=== PATIENT | male | born 1995 | race Caucasian/White ===

== ENCOUNTER 2020-07-03 18:16 | Emergency (ER) | payer MEDICAID, SELFPAY ==
[2020-07-03 18:32] VITALS: BP 132/82; PULSE 83; RESP 16; TEMP 36.5; O2SAT 98; BMI 33.5
[2020-07-03 20:02] LABS: MANUAL DIFF FLAG NO
[2020-07-03 20:03] LABS: Basophils Absolute Auto 0.1 X10*3/uL (0.0-0.2); Basophils Percent Auto 0.5 % (0-2); Eosinophils Absolute Auto 0.2 X10*3/uL (0.0-0.4); Hematocrit 43.5 % (42-52); Hemoglobin 14.9 g/dl (14.0-18.0); Imm Gran Abs Auto 0.04 X10*3/uL (0.00-0.03); Imm Gran Pct Auto 0.4 % (0.0-0.4); Lymphocytes Absolute Auto 3.3 X10*3/uL (1.2-4.9); Mean Corpuscular HGB Conc 34.3 g/dl (31.0-36.0); Mean Corpuscular Volume 84.6 fL (80-98); Mean Platelet Volume 10.1 fL (9.4-12.4); Monocytes Absolute Auto 0.7 X10*3/uL (0.1-1.2); Monocytes Percent Auto 6.7 % (2-11); Neutrophils Absolute Auto 6.4 X10*3/uL (2.0-8.3); Neutrophils Percent Auto 59.4 % (45-73); Platelet Count 187 X10*3/uL (160-400); Red Blood Count 5.14 X10*6/uL (4.60-5.80); Red Cell Distribution Width 11.8 % (11.0-16.0); White Blood Count 10.7 X10*3/uL (4.8-10.8)
[2020-07-03 20:04] LABS: Glucose Urine UA NEG (NEG); Leukocyte Esterase Urine NEG (NEG); Nitrite Urine NEG (NEG); PH 6.5 (5.0-8.0); Urine Blood NEG (NEG); Urine Ketones NEG (NEG); Urine Protein NEG (NEG-TRACE)
[2020-07-03 20:05] LABS: Appearance Urine CLEAR; Color Urine YELLOW
[2020-07-03 20:10] LABS: Prothrombin Time 11.9 SEC (10.8-13.0)
[2020-07-03 20:13] LABS: Partial Thromboplastin Time 31.1 SEC (24.1-38.0)
[2020-07-03] MEDS: Ketorolac Tromethamine 30 MG/ML VIAL IVPUSH (20:17)
[2020-07-03] MEDS: 0.9 % Sodium Chloride 1,000 ML 999 ML IV ×2 (20:18→21:52)
--- NOTE | 2020-07-03 20:20 | ED.ABDPAIN ---
HPI - Abdominal Pain General Chief Complaint: Abdominal Pain Stated Complaint: sharp abd pain Time Seen by Provider: 07/03/20 19:15 Source: patient Mode of arrival: ambulatory Limitations: no limitations History of Present Illness HPI narrative: Patient presents to ED for left mid abdominal for 1 week. Patient states pain occurred after sneezing and ever since every time he moves his abdomen or sneeze he has pain. Patient denies any swelling/pain of the testicle, groin pain/swelling, fever, chills, dysuria, hematuria, flank pain, or blood in stool. Patient denies feeling any bulging or mass in the abdominal area. Patient denies any swelling/pain in groin or testicular area. Patient states pain is in mid abdomen MD elicited complaint: abdominal pain Related Data Previous Rx's Medication Instructions Recorded cyclobenzaprine 10 mg PO TID PRN #15 tab 07/03/20 naproxen 500 mg PO BID PRN #20 tab 07/03/20 Allergies Allergy/AdvReac Type Severity Reaction Status Date / Time No Known Allergies Allergy Unverified 02/23/20 17:01 [No Known Allergies*] Review of Systems Review of Systems Yes all other systems are reviewed and are negative Constitutional: Reports as per HPI and Reports no additional constitutional complaints Eyes: Reports as per HPI and Reports no additional eye complaints Reports system reviewed and no additional complaints, except as documented and Reports as per HPI Cardiovascular: Reports as per HPI and Reports no additional cardiovascular complaints Respiratory: Reports as per HPI and Reports no additional respiratory complaints Gastrointestinal: Reports as per HPI, Reports no additional gastrointestinal complaints and Reports abdominal pain (Left mid abdomen) Genitourinary: Reports no additional male genitourinary complaints and Reports as per HPI Musculoskeletal: Reports no additional musculoskeletal complaints and Reports as per HPI Reports system reviewed and no additional complaints, except as documented and Reports as per HPI Psychiatric: Reports no additional psychiatric complaints and Reports as per HPI Physical Exam Vital Signs: Vital Signs: Last Vital Signs Temp 98.4 F 07/03/20 21:50 Pulse 67 07/03/20 21:50 Resp 15 07/03/20 21:50 BP 126/81 07/03/20 21:50 Pulse Ox 99 07/03/20 21:50 Body Mass Index 33.5 Const: General: cooperative, healthy appearing, comfortable, no acute distress, well developed, alert and awake; No Physically active Orientation/consciousness: patient oriented x3 HENMT: Head: Yes normal to inspection and Yes No palpable skull fracture present Eyes: General: appearance normal, both eyes and all related structures Neck: Neck: Yes normal visual inspection, Yes full ROM, Yes no lymphadenopathy, Yes no meningeal signs, Yes trachea midline, Yes supple and No tender Chest: Chest palpation & inspection: normal inspection of the chest and normal palpation of entire chest wall Resp: Effort & Inspection: normal respiratory effort and able to speak in complete sentences Auscultation: clear to auscultation bilaterally Cardio: Jugular venous distension: no JVD Heart sounds: S1 normal heart sound present and S2 normal heart sound present GI: Other: Negative for any mass on palpation of abdominal area. Negative for any pinpoint tenderness. Inspection: Yes normal to inspection and No abdominal wall ecchymosis Palpation (GI): Soft to palpation, not firm, nontender, no guarding and not rigid : General: No CVA tenderness and Yes no CVA tenderness Back/Spine/Pelvis: Back: no CVA tenderness, No CVA tenderness and No back tenderness Skin: General skin exam: no rashes or lesions noted and elasticity normal Neuro: General: patient oriented x3, no meningeal signs and CN's II-XI intact bilaterally Cranial nerves: Yes CN's II-XII intact bilaterally Extrem: General: Yes normal to inspection and Yes full ROM Psych: Appearance: grossly normal, well kempt and not disheveled Course Course Course Narrative: Patient abdomen is benign but due to him stating 1 week of left lower quadrant mid abdominal pain will be sent for CT abdomen to make sure there is no medical/surgical emergent etiology. Reevaluation(s) Reevaluation #1: Labs came back normal except patient's creatinine. Patient's creatinine elevated. When I went to discuss this with patient patient admits that he he drinks lots of creatinine to gain weight. Patient informed creatinine can cause increase in his kidney function and he should stop or reduce intake of creatinine. Patient will be sent for dry abdominal CT scan. Presently patient not any distress. Patient will be given IV fluids and have repeat chemistry ordered. Time: 22:16 Reevaluation #2: Abdominal CT scan came back negative for any hernia or any abdominal etiology. Patient receiving fluid and will await results of repeat chemistry. Case signed out to ANASTASIA Holbrook MDM - Abdominal Pain MDM Narrative Medical decision making narrative: Abdominal wall strain Lab Data Result diagrams: 07/03/20 19:49 07/03/20 19:49 Labs: Lab Results 07/03/20 07/03/20 07/03/20 Range/Units 19:49 19:49 19:49 WBC 10.7 (4.8-10.8) X10*3/uL RBC 5.14 (4.60-5.80) X10*6/uL Hgb 14.9 (14.0-18.0) g/dl Hct 43.5 (42-52) % MCV 84.6 (80-98) fL MCH 29.0 (27.0-33.0) pg MCHC 34.3 (31.0-36.0) g/dl RDW 11.8 (11.0-16.0) % Plt Count 187 (160-400) X10*3/uL MPV 10.1 (9.4-12.4) fL Immature Gran % (Auto) 0.4 (0.0-0.4) % Neut % (Auto) 59.4 (45-73) % Lymph % (Auto) 31.0 (20-40) % [place] % (Auto) 6.7 (2-11) % Eos % (Auto) 2.0 (0-4) % Baso % (Auto) 0.5 (0-2) % Lymph # (Auto) 3.3 (1.2-4.9) X10*3/uL [place] # (Auto) 0.7 (0.1-1.2) X10*3/uL Eos # (Auto) 0.2 (0.0-0.4) X10*3/uL Baso # (Auto) 0.1 (0.0-0.2) X10*3/uL Abs Immat Gran (auto) 0.04 H (0.00-0.03) X10*3/uL Absolute Neuts (auto) 6.4 (2.0-8.3) X10*3/uL Absolute Nucleated RBC 0.000 (0.0-0.012) X10*3/uL Nucleated RBC % (auto) 0.0 (0.0-0.2) /100WBC PT 11.9 (10.8-13.0) SEC INR 1.0 (0.9-1.1) APTT 31.1 (24.1-38.0) SEC Sodium 140 (135-145) mmol/L Potassium 4.3 (3.3-5.1) mmol/l Chloride 104 (96-108) mmol/L Carbon Dioxide 28 (22-29) mmol/L Anion Gap 12 (12-20) BUN 19 H (9-16) mg/dL Creatinine 1.48 H (0.5-1.4) mg/dL Estim Creat Clear Calc 98.2 Estimated GFR 59 Random Glucose 86 (60-115) mg/dL Calcium 9.3 (8.4-10.2) mg/dL Total Bilirubin 0.4 (0.0-1.0) mg/dL Direct Bilirubin < 0.2 (0.0-0.5) mg/dL AST 41 H (5-37) U/L ALT 62 H (0-40) U/L Alkaline Phosphatase 90 (39-117) U/L Total Protein 7.5 (6.5-8.0) g/dL Albumin 4.7 (3.5-5.0) g/dL Lipase 36 (8-78) U/L Urine Color Urine Appearance Urine pH (5.0-8.0) Ur Specific [place] (1.005-1.025) Urine Protein (NEG-TRACE) MG/DL Urine Glucose (UA) (NEG) MG/DL Urine Ketones (NEG) MG/DL Urine Blood (NEG) Urine Nitrite (NEG) Ur Leukocyte Esterase (NEG) 07/03/20 Range/Units 19:49 WBC (4.8-10.8) X10*3/uL RBC (4.60-5.80) X10*6/uL Hgb (14.0-18.0) g/dl Hct (42-52) % MCV (80-98) fL MCH (27.0-33.0) pg MCHC (31.0-36.0) g/dl RDW (11.0-16.0) % Plt Count (160-400) X10*3/uL MPV (9.4-12.4) fL Immature Gran % (Auto) (0.0-0.4) % Neut % (Auto) (45-73) % Lymph % (Auto) (20-40) % [place] % (Auto) (2-11) % Eos % (Auto) (0-4) % Baso % (Auto) (0-2) % Lymph # (Auto) (1.2-4.9) X10*3/uL [place] # (Auto) (0.1-1.2) X10*3/uL Eos # (Auto) (0.0-0.4) X10*3/uL Baso # (Auto) (0.0-0.2) X10*3/uL Abs Immat Gran (auto) (0.00-0.03) X10*3/uL Absolute Neuts (auto) (2.0-8.3) X10*3/uL Absolute Nucleated RBC (0.0-0.012) X10*3/uL Nucleated RBC % (auto) (0.0-0.2) /100WBC PT (10.8-13.0) SEC INR (0.9-1.1) APTT (24.1-38.0) SEC Sodium (135-145) mmol/L Potassium (3.3-5.1) mmol/l Chloride (96-108) mmol/L Carbon Dioxide (22-29) mmol/L Anion Gap (12-20) BUN (9-16) mg/dL Creatinine (0.5-1.4) mg/dL Estim Creat Clear Calc Estimated GFR Random Glucose (60-115) mg/dL Calcium (8.4-10.2) mg/dL Total Bilirubin (0.0-1.0) mg/dL Direct Bilirubin (0.0-0.5) mg/dL AST (5-37) U/L ALT (0-40) U/L Alkaline Phosphatase (39-117) U/L Total Protein (6.5-8.0) g/dL Albumin (3.5-5.0) g/dL Lipase (8-78) U/L Urine Color YELLOW Urine Appearance CLEAR Urine pH 6.5 (5.0-8.0) Ur Specific [place] 1.010 (1.005-1.025) Urine Protein NEG (NEG-TRACE) MG/DL Urine Glucose (UA) NEG (NEG) MG/DL Urine Ketones NEG (NEG) MG/DL Urine Blood NEG (NEG) Urine Nitrite NEG (NEG) Ur Leukocyte Esterase NEG (NEG) Discharge Plan Discharge Clinical Impression: Abdominal wall strain Patient Disposition: Home, Self-Care Instructions: Muscle Strain (ED), Abdominal Pain (ED) Additional Instructions: Return to the ED for worsening abdominal pain, swelling of groin or testicular area, vomiting, fever, chills, flank pain, dysuria, hematuria, or any other concerning symptoms. Be aware of drowsiness caused by cyclobenzaprine. Do not take it at work or while driving. Please follow-up with the PCP Prescriptions: New naproxen 500 mg tablet 500 mg PO BID PRN (Reason: pain) Qty: 20 RF: 0 cyclobenzaprine 10 mg tablet 10 mg PO TID PRN (Reason: strain) Qty: 15 RF: 0 Print Language: [place]al[place] [facility] Past Medical History Medical History (Updated 07/03/20 @ 22:18 by ZHOU Boo) No known health problems Social History Social History Alcohol intake: never Smoking Status: Never smoker Use of substances other than those prescribed or required for medical reasons: No Advance Directives: No Advance Directives Information Provided: Yes
[2020-07-03 20:34] LABS: Alanine Aminotransferase 62 U/L (0-40); Albumin Level 4.7 g/dL (3.5-5.0); Alkaline Phosphatase 90 U/L (39-117); Anion Gap 12 (12-20); Aspartate Amino Transferase 41 U/L (5-37); Bilirubin Direct < 0.2 mg/dL (0.0-0.5); Bilirubin Total 0.4 mg/dL (0.0-1.0); Blood Urea Nitrogen 19 mg/dL (9-16); Calcium 9.3 mg/dL (8.4-10.2); Carbon Dioxide 28 mmol/L (22-29); Chloride 104 mmol/L (96-108); Creatinine Clr Calc Pharmacy 98.2; Estimated Glomerular Filt Rate 59; Glucose Random 86 mg/dL (60-115); Lipase 36 U/L (8-78); Potassium 4.3 mmol/l (3.3-5.1); Sodium 140 mmol/L (135-145); Total Protein 7.5 g/dL (6.5-8.0)
--- NOTE | 2020-07-03 20:59 | CT_ITS ---
EXAMINATION: CT ABDOMEN AND PELVIS WITHOUT CONTRAST CLINICAL INFORMATION: Left-sided abdominal pain. Question diverticulitis or hernia. COMPARISON: None TECHNIQUE: Multidetector volumetric imaging was performed from the superior aspect of the liver through the pubic symphysis. Sagittal and coronal reformatted images were obtained on the technologist's workstation. This CT examination was performed using dose optimization techniques as appropriate, variously including the following: *Automated exposure control *Adjustment of mA and/or kV according to patient size (this includes techniques or standardized protocols for targeted exams where dose is matched to indication/reason for exam; i.e. extremities or head) *Use of iterative reconstruction technique DLP: 732 mGy-cm FINDINGS: LUNG BASES: The visualized lung bases are unremarkable. LIVER, GALLBLADDER, AND BILIARY TREE: The liver is normal in size, shape, and attenuation. No focal hepatic lesion or biliary ductal dilatation is present. The gallbladder is unremarkable with no evidence of radiopaque gallstones, gallbladder wall thickening, or obvious pericholecystic inflammatory changes. PANCREAS: Unremarkable. SPLEEN: Unremarkable. ADRENAL GLANDS: Unremarkable. KIDNEYS AND URETERS: The kidneys are normal in size, shape, and attenuation. No hydronephrosis, hydroureter, or calculi seen. No perinephric stranding. BLADDER: Unremarkable. GASTROINTESTINAL TRACT: The stomach is unremarkable. Normal caliber small bowel. There is no obstruction. No colonic wall thickening or acute inflammatory change. Normal appendix. No free air or free fluid. ABDOMINAL WALL: No significant hernia is appreciated. LYMPH NODES: Normal. VASCULAR: Unremarkable. PELVIC VISCERA: The prostate and seminal vesicles are unremarkable. OSSEOUS STRUCTURES: Unremarkable. CT/CT abdomen pelvis wo con IMPRESSION: No acute findings of the abdomen or pelvis. No inflammatory changes. No abdominal wall hernia.
[2020-07-03 21:50] VITALS: BP 126/81; PULSE 67; RESP 15; TEMP 36.9; O2SAT 99
[2020-07-03 23:00] LABS: Carbon Dioxide 26 mmol/L (22-29); Chloride 108 mmol/L (96-108); Sodium 141 mmol/L (135-145)
[2020-07-03 23:01] LABS: Alanine Aminotransferase 54 U/L (0-40); Albumin Level 4.2 g/dL (3.5-5.0); Alkaline Phosphatase 78 U/L (39-117); Anion Gap 11 (12-20); Aspartate Amino Transferase 35 U/L (5-37); Bilirubin Total 0.4 mg/dL (0.0-1.0); Blood Urea Nitrogen 19 mg/dL (9-16); Calcium 8.5 mg/dL (8.4-10.2); Creatinine Clr Calc Pharmacy 107.7; Estimated Glomerular Filt Rate > 60; Glucose Random 91 mg/dL (60-115); Total Protein 6.6 g/dL (6.5-8.0)
== END 2020-07-03 23:29 | disposition home or self-care (01) ==
PROVIDERS: Physician Assistant; Emergency Provider Emergency Medicine Emergency Medical Services
DX: S39.011A Strain of muscle, fascia and tendon of abdomen, initial encounter (principal); X50.9XXA Other and unspecified overexertion or strenuous movements or postures, initial encounter; Y93.89 Activity, other specified; Y92.019 Unspecified place in single-family (private) house as the place of occurrence of the external cause; Y99.9 Unspecified external cause status
CPT/HCPCS: 36415; 74176; 80053; 80076; 81003; 82248; 83690; 85025; 85610; 85730; 96361; 96374; 99284; J1885

== ENCOUNTER 2020-12-30 21:55 | Emergency (ER) | payer OTHER, SELFPAY ==
[2020-12-30 22:29] VITALS: BP 130/80; PULSE 78; RESP 16; TEMP 37.2; O2SAT 99; BMI 32.8
--- NOTE | 2020-12-30 23:06 | ED_ITS ---
HPI - General Adult General Chief complaint: General Medical Stated complaint: strept Time Seen by Provider: 12/30/20 22:41 Source: patient Mode of arrival: ambulatory Limitations: no limitations History of Present Illness HPI narrative: 25-year-old male otherwise healthy came in for evaluation of sore throat. This is a 25-year-old male was diagnosed with strep pharyngitis at urgent care 2 days ago, patient was started on Augmentin and been taking the medication for the last 2 days but not feeling improvement with persistent of the fever of 103. Related Data Previous Rx's Medication Instructions Recorded cyclobenzaprine 10 mg PO TID PRN #15 tab 07/03/20 naproxen 500 mg PO BID PRN #20 tab 07/03/20 amoxicillin 875 mg-potassium 1 tab PO BID #20 tab 12/28/20 clavulanate 125 mg tablet clindamycin HCl 300 mg PO BID 7 Days #14 cap 12/31/20 prednisone 20 mg PO BID #10 tab 12/31/20 Allergies Allergy/AdvReac Type Severity Reaction Status Date / Time No Known Allergies Allergy Unverified 12/28/20 11:48 [No Known Allergies*] Review of Systems Review of Systems: All other systems are reviewed and are negative Constitutional: Reports as per HPI and Reports no additional constitutional complaints Eyes: Reports as per HPI and Reports no additional eye complaints Reports system reviewed and no additional complaints, except as documented Cardiovascular: Reports as per HPI and Reports no additional cardiovascular complaints Respiratory: Reports as per HPI and Reports no additional respiratory complaints Gastrointestinal: Reports as per HPI and Reports no additional gastrointestinal complaints Genitourinary: Reports no additional female genitourinary complaints Musculoskeletal: Reports no additional musculoskeletal complaints Skin/Breast: Reports system reviewed and no additional complaints, except as docu Psychiatric: Reports no additional psychiatric complaints Endocrine: Reports no additional endocrine complaints Hematologic/Lymphatic: Reports no additional hematologic/lymphatic complaints Allergic/Immunologic: Reports no additional allergic/immunologic complaints Reports system reviewed and no additional complaints, except as documented and Reports Abnormal speech present [facility] Past Medical History Medical History No known health problems Social History Social History Alcohol intake: never Advance Directives: No Advance Directives Information Provided: Yes Physical Exam Vital Signs: Vital Signs: Last Vital Signs Temp 99 F 12/30/20 22:29 Pulse 78 12/30/20 22:29 Resp 16 12/30/20 22:29 BP 130/80 12/30/20 22:29 Pulse Ox 99 12/30/20 22:29 Body Mass Index 32.8 Vital signs have been reviewed as appeared to be correct. Blood pressure normal. Heart rate normal. Respiration rate normal. Temperature normal. Oxygen saturation normal. Appearance: Alert. Oriented X3. No acute distress. Head: Normal external exam. Normocephalic. Atraumatic. No Mayer signs noted. No raccoon eyes noted Eyes: PERRLA. EOMI. Conjunctiva and sclera normal. Eyelids normal. ENT: Pharyngeal erythema, with enlarged tonsils, white discharge, uvula is midline, no pre tonsillar abscess is appreciated. Neck: Normal inspection. Neck supple. FROM. No adenopathy. Thyroid Normal. No meningeal signs. No neck mass noted. CVS: Normal heart rate and rhythm. Heart sound normal. No murmurs noted. Pulses normal throughout. Respiratory: No respiratory distress. Painless inspiration. Breath sounds normal. No wheezes/rales/rhonchi noted. Chest nontender. No accessory muscle usage noted or decreased air movement noted. Abdomen: Soft and nontender. Bowel sounds normal in all 4 quadrants. No distention noted. No organomegaly noted. No visible injury noted. Back: No CVA tenderness. Full range of motion noted. Skin: Skin warm and dry. Normal skin color. Normal skin turgor. No rashes/lesions/lacerations noted. Extremities: No lower extremity edema. Extremities exhibit normal range of motion. Extremities nontender. Neuro: Oriented X 3. No motor deficit. No sensory deficit. Reflexes normal. Course Course Course Narrative: Assessment and plan. Patient with pharyngitis, patient is not responding well to Augmentin, will start the patient on clindamycin and short course of prednisone to help the swelling of the tonsils. Medical Decision Making Lab Data Lab results reviewed: Yes I reviewed the patient's lab results. Labs: Lab Results 12/30/20 12/30/20 Range/Units 23:24 23:24 Monoscreen Negative (Negative) S. pyogenes GrpA JEFF Negative (Negative) Discharge Plan Discharge Clinical Impression: Pharyngitis Patient Disposition: Home, Self-Care Prescriptions: New clindamycin HCl 300 mg capsule 300 mg PO BID 7 Days Qty: 14 RF: 0 prednisone 20 mg tablet 20 mg PO BID Qty: 10 RF: 0 No Action naproxen 500 mg tablet 500 mg PO BID PRN (Reason: pain) Qty: 20 RF: 0 cyclobenzaprine 10 mg tablet 10 mg PO TID PRN (Reason: strain) Qty: 15 RF: 0 amoxicillin-pot clavulanate [Augmentin] 875-125 mg tablet 1 tab PO BID Qty: 20 RF: 0 Referrals: Physician,None [Primary Care Provider] - 2 days Stand Alone Forms: Work/School Release
[2020-12-30 23:36] LABS: Strep A Nucleic Acid Negative (Negative)
[2020-12-30] MEDS: predniSONE 20 MG TABLET 40 MG PO (23:37)
[2020-12-30] MEDS: Clindamycin HCL 300 MG CAPSULE 600 MG PO (23:37)
[2020-12-30 23:51] LABS: Monotest Negative (Negative)
== END 2020-12-31 00:37 | disposition home or self-care (01) ==
PROVIDERS: Emergency Provider Emergency Medicine
DX: J02.9 Acute pharyngitis, unspecified (principal); R50.9 Fever, unspecified
CPT/HCPCS: 36415; 86308; 87651; 99283

== ENCOUNTER 2021-01-03 11:17 | Outpatient (REF) | payer OTHER, SELFPAY | END 2021-01-03 11:18 | disposition home or self-care (01) | LOC: HO.LNP 11:17 | PROVIDERS: Visit Provider Internal Medicine | DX: Z20.822 Contact with and (suspected) exposure to COVID-19 (principal) | CPT/HCPCS: U0003; U0005 ==

== ENCOUNTER 2021-01-06 10:23 | Emergency (ER) | payer OTHER, SELFPAY ==
--- NOTE | ~2021-01-06 | XR_ITS ---
EXAMINATION: XR CHEST CLINICAL INFORMATION: Cough COMPARISON: None TECHNIQUE: Frontal view of the chest was obtained. FINDINGS: Lungs are well-inflated and clear. Trachea is midline in position. No interstitial disease, consolidation or mass. No pulmonary edema, pleural effusion or pneumothorax. Cardiac silhouette and pulmonary vessels are normal in size. The mediastinum and jenise have normal contour. The visualized bones, and upper abdomen, are unremarkable. XR/XR chest 1V IMPRESSION: No acute cardiopulmonary abnormality. No evidence of pneumonia.
[2021-01-06 11:10] VITALS: BP 119/79; PULSE 82; RESP 18; TEMP 36.3; O2SAT 98; BMI 31.4
--- NOTE | 2021-01-06 13:37 | ED_ITS ---
HPI - General Adult General Chief complaint: Upper Respiratory Symptoms Stated complaint: Difficulty breathing Time Seen by Provider: 01/06/21 12:32 Source: patient Mode of arrival: ambulatory Limitations: no limitations History of Present Illness HPI narrative: Patient presents to ED for coughing. Patient states presently being treated for strep throat. Patient states he was amoxicillin and was not working so they switched him to clindamycin. Patient states tomorrow is his last dose of the amoxicillin and clindamycin. Patient also on steroids. Patient came to the ED to make sure he does not have pneumonia due to coughing. Patient tested negative for COVID yesterday. Patient was positive for strep throat last week. Patient denies any drooling, change in voice, or chest pain. Related Data Previous Rx's Medication Instructions Recorded cyclobenzaprine 10 mg tablet 10 mg PO TID PRN #15 tab 07/03/20 naproxen 500 mg tablet 500 mg PO BID PRN #20 tab 07/03/20 amoxicillin 875 mg-potassium 1 tab PO BID #20 tab 12/28/20 clavulanate 125 mg tablet (Augmentin) clindamycin HCl 300 mg capsule 300 mg PO BID 7 Days #14 cap 12/31/20 prednisone 20 mg tablet 20 mg PO BID #10 tab 12/31/20 benzonatate 100 mg capsule 100 mg PO TID PRN #15 cap 01/06/21 (Priya Enriquez) Allergies Allergy/AdvReac Type Severity Reaction Status Date / Time No Known Allergies Allergy Unverified 12/28/20 11:48 [No Known Allergies*] Review of Systems Review of Systems: Yes all other systems are reviewed and are negative Constitutional: Constitutional: Reports as per HPI and Reports no additional constitutional complaints Eyes: Eyes: Reports as per HPI and Reports no additional eye complaints ENT: Reports system reviewed and no additional complaints, except as documented, Reports as per HPI and Reports sore throat Cardiovascular: Cardiovascular: Reports as per HPI, Reports no additional cardiovascular complaints, Denies dyspnea and Denies dyspnea on exertion Respiratory: Respiratory: Reports as per HPI, Reports no additional respiratory complaints, Reports cough, Denies excessive phlegm production, Denies pain on inspiration, Denies pain with cough, Denies dyspnea and Denies dyspnea on exertion Gastrointestinal: Gastrointestinal: Reports as per HPI and Reports no additional gastrointestinal complaints Genitourinary: Genitourinary: Reports no additional male genitourinary complaints and Reports as per HPI Musculoskeletal: Musculoskeletal: Reports no additional musculoskeletal complaints and Reports as per HPI Integumentary/Breasts: Skin/Breast: Reports system reviewed and no additional complaints, except as docu and Reports as per HPI Neurologic: Reports system reviewed and no additional complaints, except as documented and Reports as per HPI Psychiatric: Psychiatric: Reports no additional psychiatric complaints and Reports as per HPI [facility] Past Medical History Medical History No known health problems Social History Social History Alcohol intake: never Advance Directives: No Advance Directives Information Provided: No Physical Exam Vital Signs: Vital Signs: Last Vital Signs Temp 97.3 F 01/06/21 11:10 Pulse 82 01/06/21 11:10 Resp 18 01/06/21 11:10 BP 119/79 01/06/21 11:10 Pulse Ox 98 01/06/21 11:10 Body Mass Index 31.4 Const: General: cooperative, healthy appearing, comfortable, no acute distress, well developed, alert, awake and Physically active Orie ntation/consciousness: patient oriented x3 HENMT: Other: Negative for signs of peritonsillar abscess Head: Yes normal to inspection, Yes No palpable skull fracture present, Yes normocephalic and Yes atraumatic Throat: Yes posterior oropharynx normal, Yes uvula midline, Yes abnormal tonsil (Both tonsils have white exudates. ) and No peritonsillar mass Eyes: General: appearance normal, both eyes and all related structures Neck: Neck: Yes normal visual inspection, Yes full ROM, Yes no lymphadenopathy, Yes no meningeal signs, Yes trachea midline, Yes supple, No anterior neck swelling and No tender Chest: Chest palpation & inspection: normal inspection of the chest and normal palpation of entire chest wall Resp: Effort & Inspection: normal respiratory effort and able to speak in complete sentences Auscultation: clear to auscultation bilaterally Cardio: Jugular venous distension: no JVD Heart sounds: S1 normal heart sound present and S2 normal heart sound present GI: Inspection: Yes normal to inspection and No abdominal wall ecchymosis Palpation (GI): Soft to palpation, not firm, nontender, no guarding and not rigid : General: No CVA tenderness and Yes no CVA tenderness Back/Spine/Pelvis: Back: no CVA tenderness, No CVA tenderness and No back tenderness Skin: General skin exam: no rashes or lesions noted and elasticity normal Neuro: General: patient oriented x3, gait normal, no meningeal signs and CN's II-XI intact bilaterally Cranial nerves: Yes CN's II-XII intact bilaterally Extrem: General: Yes normal to inspection and Yes full ROM Course Course Course Narrative: Negative for signs of peritonsillar abscess. Patient had negative COVID swab yesterday. Will do chest x-ray Reevaluation(s) Reevaluation #1: Chest x-ray came back negative for pneumonia. Patient informed to continue taking antibiotics and follow-up with ENT. No need for any CT scan. Not suspecting any retropharyngeal abscess, Simeon's, or peritonsillar abscess. Patient speaking in full sentences not using accessory muscles. Time: 13:43 Medical Decision Making MDM Narrative Medical decision making narrative: Tonsillitis Discharge Plan Discharge Clinical Impression: Acute tonsillitis, Upper respiratory infection Patient Disposition: Home, Self-Care Instructions: Pharyngitis (ED), Upper Respiratory Infection (ED), Tonsillitis (ED) Additional Instructions: Your chest x-ray came back negative for pneumonia. Continue taking your antibiotics ( amoxicillin and clindamycin). Please follow-up with ENT specialist. Return to the ED for any drooling, change in voice, neck swelling, chest pain, shortness of breath, intractable fever, chills, inability tolerate solid food/liquid, or any other concerning symptoms. Please follow-up with PCP. Prescriptions: New benzonatate [Tessalon Perles] 100 mg capsule 100 mg PO TID PRN (Reason: cough) Qty: 15 RF: 0 No Action naproxen 500 mg tablet 500 mg PO BID PRN (Reason: pain) Qty: 20 RF: 0 cyclobenzaprine 10 mg tablet 10 mg PO TID PRN (Reason: strain) Qty: 15 RF: 0 clindamycin HCl 300 mg capsule 300 mg PO BID 7 Days Qty: 14 RF: 0 prednisone 20 mg tablet 20 mg PO BID Qty: 10 RF: 0 amoxicillin-pot clavulanate [Augmentin] 875-125 mg tablet 1 tab PO BID Qty: 20 RF: 0 Referrals: Franki Ashby [Physician] - 2 days (Tonsillitis) Stand Alone Forms: Work/School Release Interventions: ED Discharge Assessment Last Done: 01/06/21 13:54 Discharge Date/Time: 01/06/21 13:59 Print Language: Romansh
== END 2021-01-06 13:59 | disposition home or self-care (01) ==
PROVIDERS: Emergency Provider Student in an Organized Health Care Education/Training Program; PCP Internal Medicine
DX: J06.9 Acute upper respiratory infection, unspecified (principal); J03.90 Acute tonsillitis, unspecified; R06.02 Shortness of breath; Z79.899 Other long term (current) drug therapy
CPT/HCPCS: 71045; 99283

== ENCOUNTER 2021-04-24 19:04 | Emergency (ER) | payer OTHER, SELFPAY ==
--- NOTE | ~2021-04-24 | XR_ITS ---
EXAMINATION: XR HAND, RIGHT CLINICAL INFORMATION: Injury and pain to the index finger COMPARISON: None TECHNIQUE: PA, lateral, and oblique views of the right hand. FINDINGS: There is dislocation of the PIP joint of the index finger. The middle phalanges dislocated posterior without overriding. No fracture fragment evident. XR/XR hand RT min 3V IMPRESSION: Dislocation of the PIP joint of the index finger.
--- NOTE | ~2021-04-24 | XR_ITS ---
EXAMINATION: XR FINGER, RIGHT CLINICAL INFORMATION: Dislocation PIP joint of index finger follow-up reduction COMPARISON: None TECHNIQUE: Three views of the right index. FINDINGS: Successful reduction of the previously seen dislocation of the PIP joint of the index finger. There is a chip fracture at the volar side of the joint. There are site appears to be the volar side of the middle phalange at the volar plate. XR/XR finger RT min 2V IMPRESSION: Successful reduction of PIP joint dislocation of the index finger. Volar plate fracture.
[2021-04-24 20:05] VITALS: BP 118/78; PULSE 76; RESP 16; TEMP 37.1; O2SAT 100; BMI 32.1
--- NOTE | 2021-04-24 20:29 | ED.EXTPRO ---
HPI - Extremity Problem General Chief complaint: Extremity Injury, Upper Stated complaint: rt hand ? broken finger Time Seen by Provider: 04/24/21 20:28 Source: patient Mode of arrival: ambulatory Limitations: no limitations History of Present Illness HPI Narrative: 25-year-old male came in for evaluation of her right index finger injury. Patient hurt his right index finger while playing basketball, the ball bounced in his right index, patient cannot bend his finger and finger is extended unable to flex the finger. Patient declined any other injuries. Related Data Previous Rx's Medication Instructions Recorded cyclobenzaprine 10 mg tablet 10 mg PO TID PRN #15 tab 07/03/20 naproxen 500 mg tablet 500 mg PO BID PRN #20 tab 07/03/20 amoxicillin 875 mg-potassium 1 tab PO BID #20 tab 12/28/20 clavulanate 125 mg tablet (Augmentin) clindamycin HCl 300 mg capsule 300 mg PO BID 7 Days #14 cap 12/31/20 prednisone 20 mg tablet 20 mg PO BID #10 tab 12/31/20 benzonatate 100 mg capsule 100 mg PO TID PRN #15 cap 01/06/21 (Tessalon Perles) Allergies Allergy/AdvReac Type Severity Reaction Status Date / Time No Known Allergies Allergy Verified 01/23/21 10:52 [No Known Allergies*] Review of Systems Review of Systems: All other systems are reviewed and are negative Constitutional: Reports as per HPI and Reports no additional constitutional complaints Eyes: Reports as per HPI and Reports no additional eye complaints Reports system reviewed and no additional complaints, except as documented Cardiovascular: Reports as per HPI and Reports no additional cardiovascular complaints Respiratory: Reports as per HPI and Reports no additional respiratory complaints Gastrointestinal: Reports as per HPI and Reports no additional gastrointestinal complaints Genitourinary: Reports no additional female genitourinary complaints Musculoskeletal: Reports no additional musculoskeletal complaints Skin/Breast: Reports system reviewed and no additional complaints, except as docu Psychiatric: Reports no additional psychiatric complaints Endocrine: Reports no additional endocrine complaints Hematologic/Lymphatic: Reports no additional hematologic/lymphatic complaints Allergic/Immunologic: Reports no additional allergic/immunologic complaints Reports system reviewed and no additional complaints, except as documented and Reports Abnormal speech present PMFSH Past Medical History Medical History No known health problems Surgical History No history of previous surgery Family History Family History Mother High blood pressure Obesity Father No problems noted. Social History Social History Housing: House Alcohol intake: never Patient Tobacco Use Status: Never used Tobacco e-Cigarette/Vaping Use: Never Used Second Hand Smoke Exposure: Yes Advance Directives: No Advance Directives Information Provided: Yes service: No Current occupational status: unemployed Physical Exam Vital Signs: Vital Signs: Last Vital Signs Temp 98.7 F 04/24/21 20:05 Pulse 76 04/24/21 20:05 Resp 16 04/24/21 20:05 BP 118/78 04/24/21 20:05 Pulse Ox 100 04/24/21 20:05 Body Mass Index 32.1 Vital signs have been reviewed as appeared to be correct. Blood pressure normal. Heart rate normal. Respiration rate normal. Temperature normal. Oxygen saturation normal. Appearance: Alert. Oriented X3. No acute distress. Head: Normal external exam. Normocephalic. Atraumatic. No Mayer signs noted. No raccoon eyes noted Eyes: PERRLA. EOMI. Conjunctiva and sclera normal. Eyelids normal. ENT: TM's Normal. Pharynx normal. Uvula midline. Moist mucous membranes. No trismus noted. No drooling noted. No muffled voice noted. Neck: Normal inspection. Neck supple. FROM. No adenopathy. Thyroid Normal. No meningeal signs. No neck mass noted. CVS: Normal heart rate and rhythm. Heart sound normal. No murmurs noted. Pulses normal throughout. Respiratory: No respiratory distress. Painless inspiration. Breath sounds normal. No wheezes/rales/rhonchi noted. Chest nontender. No accessory muscle usage noted or decreased air movement noted. Abdomen: Soft and nontender. Bowel sounds normal in all 4 quadrants. No distention noted. No organomegaly noted. No visible injury noted. Back: No CVA tenderness. Full range of motion noted. Skin: Skin warm and dry. Normal skin color. Normal skin turgor. No rashes/lesions/lacerations noted. Extremities: Right hand exam: Right index is held in hyper extension position with deformity, unable to flex right index, otherwise neurovascularly intact. Neuro: Oriented X 3. Cranial nerve exam: II-XII are grossly intact No motor deficit. No sensory deficit. Reflexes normal. Course Course Course Narrative: Assessment and plan. 25-year-old male status post right index finger reduction in the emergency department. Will immobilize the finger in splint and follow-up with ortho. MDM - Extremity (Nontraumatic) Imaging Data Right finger x-ray: Attestation: I personally reviewed and interpreted this imaging study as follows: Radiologist's impression: Dislocation of right PIP joint of her right index. Right index finger postreduction x-ray.: Radiologist's impression: Successful reduction of PIP joint dislocation of the index finger. Volar plate fracture. Discharge Plan Discharge Clinical Impression: Dislocation of finger Qualifiers: Encounter type: initial encounter Qualified Code(s): S63.259A - Unspecified dislocation of unspecified finger, initial encounter Patient Disposition: Home, Self-Care Instructions: Finger Dislocation (ED) Prescriptions: No Action naproxen 500 mg tablet 500 mg PO BID PRN (Reason: pain) Qty: 20 RF: 0 cyclobenzaprine 10 mg tablet 10 mg PO TID PRN (Reason: strain) Qty: 15 RF: 0 clindamycin HCl 300 mg capsule 300 mg PO BID 7 Days Qty: 14 RF: 0 prednisone 20 mg tablet 20 mg PO BID Qty: 10 RF: 0 benzonatate [Tessalon Perles] 100 mg capsule 100 mg PO TID PRN (Reason: cough) Qty: 15 RF: 0 amoxicillin-pot clavulanate [Augmentin] 875-125 mg tablet 1 tab PO BID Qty: 20 RF: 0 Referrals: Williasm Cortez MD [Physician] - 2 days Alissa Olmos MD [Primary Care Provider] - 2 days
[2021-04-24] MEDS: Ibuprofen 800 MG TABLET PO (21:07)
--- NOTE | 2021-04-24 21:37 | PC.NURSE ---
PT FINGER PUT BACK IN PLACE BY DR COTA AND FINGER SPLINT IN PLACE BY LANDY JOSHUA.
== END 2021-04-24 21:27 | disposition home or self-care (01) ==
PROVIDERS: Emergency Provider Emergency Medicine; PCP Internal Medicine
DX: S63.250A Unspecified dislocation of right index finger, initial encounter (principal); X58.XXXA Exposure to other specified factors, initial encounter; Y93.67 Activity, basketball; Y92.9 Unspecified place or not applicable; Y99.9 Unspecified external cause status
CPT/HCPCS: 26770; 73130; 73140; 99283

== ENCOUNTER 2021-05-15 09:05 | Outpatient (REF) | payer OTHER, SELFPAY ==
[2021-05-15 11:56] LABS: Cholesterol 182 mg/dL; HDL Cholesterol 53 mg/dL; LDL Cholesterol Calculated 115 mg/dl; Triglycerides 74 mg/dL
[2021-05-15 12:08] LABS: Syphilis Screen Nonreactive (Nonreactive)
[2021-05-15 12:12] LABS: HBc Num1 0.07 S/CO (0.00-0.79); Hepatitis B Core Antibody Nonreactive (Nonreactive); Hepatitis B Surface Antigen Negative (Negative); ~HepC Num1 0.25 S/CO (0.00-0.79); ~Hepatitis C Antibody Nonreactive (Nonreactive)
[2021-05-15 12:29] LABS: HIV AB/AG Nonreactive (Nonreactive); HIV Num 1 0.11 S/CO (0.00-0.99); ~Hepatitis B Surface Antibody NONREACTIVE (Nonreactive)
[2021-05-15 13:49] LABS: CT PCR NOT DETECTED (Not Detect.); NG PCR NOT DETECTED (Not Detect.)
== END 2021-05-15 09:06 | disposition home or self-care (01) ==
LOC: HO.HMGCLDS 09:05
PROVIDERS: PCP Internal Medicine; Visit Provider Internal Medicine
DX: Z00.00 Encounter for general adult medical examination without abnormal findings (principal); Z11.3 Encounter for screening for infections with a predominantly sexual mode of transmission
CPT/HCPCS: 80061; 86704; 86706; 86780; 86803; 87340; 87389; 87491; 87591

== ENCOUNTER 2023-03-26 09:06 | Outpatient (AMB) | payer OTHER, SELFPAY ==
--- NOTE | 2023-03-26 10:32 | MHC.OFFWIV ---
Intake Vital Signs 03/26/23 10:33 Height 5 ft 11 in Weight 104.326 kg BMI 32.1 BP 104/66 Blood Pressure Location Rt brachial Position Sitting Pulse 70 Pulse Source Pulse Oximeter Temp 96.6 F L Temp Source Temporal Artery Scan Pulse Oximetry (%) 98 Oxygen Delivery Method Room Air Intake Visit Reasons: EP, sore throat [phone] Intake Note: Pt is here c/o sore throat for the past three days. Patient Tobacco Use Status: Never used Tobacco Allergies No Known Allergies [No Known Allergies*] Allergy (Verified 03/26/23 10:32) Do you need a note to return to daycare/school/sports/work: No HPI HPI Comments History of Present Illness Details 1046 This is a 27-year-old male presenting to the clinic for evaluation of sore throat, fatigue, malaise for the past 3 days. Patient tells me has had strep throat before and this feels exactly like his last episode of strep throat. Worse when he swallows. Patient would also like to get COVID tested today has not gotten COVID tested. Denies any recent sick contacts. Denies drooling, headache, vision changes, dizziness, weakness, chest pain, shortness of breath, nausea, vomiting, abdominal pain. On exam posterior pharynx erythematous with midline uvula, no edema. There are slight exudate to bilateral tonsils, patient speaking in full sentences controlling secretions well. No palpable lymphadenopathy. Likely strep versus viral illness versus pharyngitis versus tonsillitis. No signs of threat to airway, epiglottitis, peritonsillar retropharyngeal abscess. No signs of acute respiratory discharge rapid strep negative however high suspicion. Will discharge patient home on Augmentin. Also COVID test. Educated patient on diagnosis and treatment plan, answered all question, patient verbalizes understanding. At this time patient will be discharged home, advised to return with new or worsening symptoms. Educated on worrisome signs and symptoms and when to return. At this time I feel comfortable discharge home. [facility] Medical History Heartburn Fracture of phalanx of right index finger No known health problems Surgical History No history of previous surgery Family History Mother High blood pressure Obesity Father No problems noted. Social History Housing: House Alcohol intake: current Alcohol intake frequency: holidays/special occasions only Patient Tobacco Use Status: Never used Tobacco e-Cigarette/Vaping Use: Never Used Second Hand Smoke Exposure: Yes service: No Current occupational status: unemployed Review of Systems Const Details: Constitutional : No Weight loss, No Fever, No Chills, + Fatigue, + Malaise ENT/Mouth : + sore throat, No Rhinorrhea Eyes: No Eye Pain, No Swelling, No Redness Cardiovascular : No Chest Pain, No SOB, No Dyspnea on Exertion, No Orthopnea, No Edema, No Palpitations Respiratory : No Cough, No Sputum, No Wheezing Gastrointestinal : No Nausea, No Vomiting, No Diarrhea, No Constipation, No abdominal Pain, No Hematochezia, No Melena Genitourinary : No Dysuria, No Urinary Frequency, No Hematuria, Musculoskeletal : No joint pain, No Myalgias, No Joint Swelling Skin : No Skin Lesions, No rash Neuro : No Weakness, No Numbness, No Dizziness, No Headache Psych : No Anxiety/Panic, No Depression All other systems reviewed and are negative All systems reviewed & are unremarkable except as noted in HPI and below Physical Exam Vital Signs: Last Vital Signs Temp 96.6 F L 03/26/23 10:33 Pulse 70 03/26/23 10:33 BP 104/66 03/26/23 10:33 Pulse Ox 98 03/26/23 10:33 Oxygen Delivery Method Room Air 03/26/23 10:33 BMI result Body Mass Index 32.1 vss Appearance: Alert.? Oriented X3.? No acute distress.? Head: Normocephalic, atraumatic, no step-offs or deformities Eyes: Pupils equal, round and reactive to light.? ENT: Pharynx w/ posterior pharynx erythematous with midline uvula, no edema. There are slight exudate to bilateral tonsils, patient speaking in full sentences controlling secretions well. No palpable lymphadenopathy. Neck: Normal inspection.? Neck supple.? CVS: Normal heart rate and rhythm.? Pulses normal.? Respiratory: No respiratory distress.? Breath sounds normal.? Abdomen: Soft and nontender.? Skin: Skin warm and dry.? Normal skin color.? Normal skin turgor.? Extremities: No lower extremity edema.? No calf ttp. 5/5 strength to bilateral upper and lower extremities Back: No midline tenderness, no C-spine tenderness, full range of motion, no CVA tenderness bilaterally Neuro: Oriented X 3.? No motor deficit.? No sensory deficit. CN 2-12 intact Results AMB Rapid Strep AMB Rapid Strep Negative Last Edit by Renee Charles CMA on 03/26/23 10:45 Results Reviewed Results Reviewed: Laboratory Last Values Strep Scn Rapid Clinic Negative 03/26/23 10:44 Assessment & Plan Assessment & Plan (1) Pharyngitis: Code(s): J02.9 - Acute pharyngitis, unspecified Plan Take your medications as prescribed. If you were prescribed antibiotics today, it is important that you take your medication to their entirety, do not skip any doses, do not finish them early. Follow-up with your primary care provider this week. Return to the emergency department with new or worsening symptoms. Such as fevers, chills, chest pain, shortness of breath, nausea, vomiting, dizziness, headache, vision changes, lethargy In case of emergency call 911 Orders: Orders AMB Rapid Strep Screen Today Z13.9 - Encounter for screening, unspecified Alissa Olmos MD [employer] Covid-19 Ag Today J02.9 - Acute pharyngitis, unspecified ZHOU Teixeira Medications: New amoxicillin-pot clavulanate 875-125 mg 1 tab PO BID 20 tabs 0RF 10 days ZHOU Teixeira Coding Level of Care Code Est Pt Level 3 (28649) Diagnoses Pharyngitis, unspecified etiology J02.9
[2023-03-26 10:33] VITALS: BP 104/66; PULSE 70; TEMP 35.9; O2SAT 98; BMI 32.1
== END 2023-03-26 11:19 | disposition home or self-care (01) ==
PROVIDERS: PCP Internal Medicine; Visit Provider Physician Assistant
DX: Z13.9 Encounter for screening, unspecified (principal); J02.9 Acute pharyngitis, unspecified
CPT/HCPCS: 87880; 99213

== ENCOUNTER 2023-03-26 10:45 | Outpatient (REF) | payer OTHER, SELFPAY ==
[2023-03-26 11:10] LABS: Binax Internal Control QC Valid; Binax Now Covid-19 Ag Negative (Negative); Binax Performed by: PAULP
== END 2023-03-26 10:46 | disposition home or self-care (01) ==
LOC: HO.HMGCLDS 10:45
PROVIDERS: PCP Internal Medicine; Visit Provider Physician Assistant
DX: J02.9 Acute pharyngitis, unspecified (principal); Z11.52 Encounter for screening for COVID-19
CPT/HCPCS: 87811; C9803

== ENCOUNTER 2023-05-21 13:15 | Outpatient (AMB) | payer OTHER, SELFPAY ==
--- NOTE | 2023-05-21 13:18 | A.OFFPC_ITS ---
Vital Signs 05/21/23 13:19 Height 5 ft 11 in Weight 235 lb BMI 32.8 BP 118/82 Blood Pressure Location Lt brachial Position Sitting Pulse 58 Pulse Source Pulse Oximeter Pulse Oximetry (%) 99 Oxygen Delivery Method Room Air Intake Visit Reasons: Annual PE+ NEEDS PHQ9+THRIVE Intake Note: Pt is here for His Annual PE Allergies No Known Allergies [No Known Allergies*] Allergy (Verified 05/21/23 13:32) Medication List - Last Reconciled 05/21/23 by Alissa Olmos MD No Known Home Meds Tobacco use date assessed: 05/21/23 Dental Screening Dental Screen Date: 05/21/23 Did you have a dental visit in the last 12 months?: No Did you have a dental problem in the last 6 months where you did not have access to dental care?: No Was dental information given to patient?: Patient has dentist HPI Annual PE+ NEEDS PHQ9+THRIVE HPI Details 27-year-old male, here today for his phy sical exam. He has no significant past medical history, not on any medications at present time. Patient states that he had a tetanus diphtheria vaccine given in [place] several years ago, offered flu vaccine today but patient declined. Complains of some occasional seeing bright red blood in his stool whenever he is constipated, but has been occurring infrequently. Denies any abdominal pain, no pain burning sensation in rectal area PE [facility] Medical History (Updated 05/21/23 @ 13:48 by Alissa Olmos MD) History of rectal bleeding Heartburn Fracture of phalanx of right index finger No known health problems Surgical History No history of previous surgery Family History Mother High blood pressure Obesity Father No problems noted. Social History (Updated 05/21/23 @ 13:37 by Alissa Olmso MD) Housing: House Alcohol intake: current Alcohol intake frequency: holidays/special occasions only Patient Tobacco Use Status: Never used Tobacco e-Cigarette/Vaping Use: Never Used Second Hand Smoke Exposure: Yes service: No Current occupational status: employed Cognitive needs: No Hearing needs: No Vision needs: No Questionnaire PHQ-9 Over the last 2 weeks, how often have you been bothered by any of the following problems? 1. Little interest or pleasure in doing things: several days 2. Feeling down, depressed, or hopeless: not at all 3. Trouble falling or staying asleep, or sleeping too much: several days 4. Feeling tired or having little energy: not at all 5. Poor appetite or overeating: not at all 6. Feeling bad about yourself - or that you are a failure or have let yourself or your family down: several days 7. Trouble concentrating on things, such as reading the newspaper or watching television: not at all 8. Moving or speaking so slowly that other people could have noticed. Or the opposite - being so fidgety or restless that you have been moving around a lot more than usual: not at all 9. Thoughts that you would be better off or of hurting yourself in some way: not at all Total score: 3 Depression Screening Interpretation: Negative Depression Screening Done: Yes 93781 - PHQ-9 Billing: Yes Source: Developed by Drs. Nicola Pugh, Carey Mcgee, Dk Abarca and colleagues, with an educational rashmi from [employer]. Thrive Questionnaire Date Thrive assessed: 05/21/23 I am a: Patient What is your living situation today?: I have a steady place to live Within the past 12 months, did the food you bought not last and you didn't have the money to get more?: Never true Within the past 12 months, did you worry whether your food would run out before you got money to buy more?: Never true Do you have trouble paying for medicines?: No Do you have trouble getting transportation to medical appointments?: No Do you have trouble paying your heating and electricity bill?: Yes Do you have trouble taking care of your child, family member or friend?: No Do you have trouble with day-to-day activities such as bathing, preparing meals, shopping, managing finances, etc.?: No Are you currently unemployed and looking for a job?: No Are you interested in more education?: No AUDIT C Alcohol Use Questionnaire (AUDIT-C) 1. How often do you have a drink containing alcohol?: 2-4 times a month 2. How many drinks containing alcohol do you have on a typical day when you are drinking?: 1 or 2 3. How often do you have six or more drinks on one occasion?: Less than monthly Total Score: 3 LOPEZ-7 AMB Questionnaire LOPEZ-7 Date LOPEZ - 7 assessed: 05/21/23 Feeling nervous, anxious, or on edge: 1 = Several days Not being able to stop or control worryin = Several days Worrying too much about different things: 1 = Several days Trouble relaxin = Several days Being so restless that it is hard to sit still: 1 = Several days Becoming easily annoyed or irritable: 1 = Several days Feeling afraid as if something awful might happen: 0 = Not at all Total LOPEZ-7 score (0-4 normal; 5-9 mild; 10-14 moderate; 15-21 severe): 6 Source: Developed by Drs. Nicola Pugh, Carey Mcgee, Dk Abarca and colleagues, with an educational rashmi from [employer]. LOPEZ-7 Assessment Billing LOPEZ-7 Assessment Tool: LOPEZ-7 Assessment 63156 Review of Systems Const Denies body aches, Denies fatigue, Denies fever(s), Denies headache(s) and Denies weakness Eyes Denies change in vision, Denies eye discharge and Denies itchy eyes ENT Reports Normal hearing present, Denies dizziness, Denies headache(s), Denies nasal congestion, Denies nasal discharge and Denies sore throat Card Denies chest pain, Denies lightheadedness, Denies palpitations and Denies dyspnea Resp Denies chest congestion, Denies cough, Denies dyspnea and Denies wheezing GI Reports as per HPI, Denies abdominal pain, Denies change in bowel habits and Denies heartburn Denies hematuria, Denies difficulty urinating, Denies dysuria, Denies urinary frequency and Denies urinary urgency Musc Reports no additional complaints Skin/Breast Denies breast pain, Denies breast mass, Denies lesions and Denies rash Neuro Reports Normal hearing present, Denies dizziness, Denies headache(s), Denies Sensory deficit (Neuro) and Denies weakness Psych Reports no additional complaints Endo Denies fatigue, Denies polydipsia, Denies polyuria and Denies palpitations Mckay/Lymph Denies easy bruising Aller/Immun Denies itchy eyes, Denies seasonal rhinorrhea and Denies wheezing Physical exam (Primary Care) Vital Signs: Last Vital Signs Pulse 58 05/21/23 13:19 BP 118/82 05/21/23 13:19 Pulse Ox 99 05/21/23 13:19 Oxygen Delivery Method Room Air 05/21/23 13:19 BMI result Body Mass Index 32.8 Tobacco/Smoking Status: Tobacco use Status Tobacco use date assessed 05/21/23 05/21/23 13:24 Patient Tobacco Use Status Never used Tobacco 05/21/23 13:37 e-Cigarette/Vaping Use Never Used 05/21/23 13:37 PHQ-9: PHQ-9 Score PHQ-9: Total score 3 05/21/23 13:37 Depression Screening Interpretation: Negative Thrive Assessment: Date of Thrive Assessment Date Thrive assessed 05/21/23 05/21/23 13:28 Const General: cooperative, healthy appearing, no acute distress and alert Orientation/consciousness: patient oriented x3 Limitations: no limitations HENMT Head: Yes normal to inspection, Yes normocephalic and Yes atraumatic Ears: hearing grossly normal bilaterally, external ears normal, TM's normal bilaterally and EAC's normal General nose exam: Normal external nose present, Normal nasal mucous membranes and turbinates present and No nasal discharge present Face and sinus: Yes normal facial exam, Yes sinuses nontender and Yes face symmetric Mouth: Normal oral and palatal mucosa present, lip normal, tongue normal, oropharynx normal and moist mucous membranes Eyes Conjunctivae: conjunctivae normal Sclerae: sclerae normal Pupils: Equal, round and reactive pupils present EOM: EOMs intact bilaterally Neck Neck: Yes full ROM and Yes no lymphadenopathy Thyroid: Thyroid normal Carotids: normal carotid upstroke Lymphatic: no lymphadenopathy noted Chest Chest palpation & inspection: normal inspection of the chest Resp Effort & Inspection: normal respiratory effort and able to speak in complete sentences Auscultation: clear to auscultation bilaterally Cardio Jugular venous distension: no JVD Rate: regular rate Rhythm: regular rhythm Heart sounds: S1 normal heart sound present and S2 normal heart sound present GI Inspection: Yes normal to inspection Palpation (GI): Soft to palpation Auscultation: normal bowel sounds Rectal Exam - Male: Yes visual inspection normal, Yes normal sphincter tone, No External hemorrhoid(s) present, No Lesions present (GI), No Laceration(s) present (GI) and No tenderness General: Yes no CVA tenderness Male General Exam: Yes normal external exam, No hernia, No inguinal lymphadenopathy and No Genital lesions present Penis: normal penis, no vesicles and No Genital lesions present Scrotum: scrotum normal, no inguinal hernias, no masses and no scrotal swelling Testes: Testes normal, no testicular mass, no testicular swelling and no testicular tenderness Back/Spine/Pelvis Back: no CVA tenderness Cervical Spine: normal cervical lordosis and cervical ROM normal Thoracic/Lumbar Spine: thoracic and lumbar spine normal to inspection and thoraco-lumbar ROM normal Skin Other: Scaly hyper pigmented rash on radial aspect of right wrist, and similar appearing rash on left hip Neuro General: patient oriented x3, gait normal, moves all extremities, no focal motor deficits and CN's II-XI intact bilaterally Cranial nerves: Yes Equal, round and reactive pupils present and Yes Normal hearing present Cognition (Neuro): normal cognition Gait exam (Neuro): Normal gait present Motor exam (neuro): 5/5 motor strength present throughout Sensory Exam: No Sensory deficit (Neuro) Extrem General: Yes normal to inspection, Yes full ROM, Yes no pedal edema and Yes normal gait Psych Appearance: grossly normal and well kempt Mental Status: mental status grossly normal Speech and movement: Normal speech and movement present Affect: normal affect Attitude: cooperative Thought process: Normal thought process present Assessment and Plan Assessment & Plan (1) Adult general medical exam: Code(s): Z00.00 - Encounter for general adult medical examination without abnormal findings Plan: Will check appropriate labs. Recommended dental visit every 6 months and regular eye exams, at least every 2 years. Instructed to do self-testicular exam check for any mass. Declined offer for flu shot, patient states he had tetanus booster done in [place] 2018. Declines getting COVID vaccine (2) Constipation: Code(s): K59.00 - Constipation, unspecified Qualifiers: Constipation type: unspecified constipation type Qualified Code(s): K59.00 - Constipation, unspecified Plan: Advised to increase dietary fiber intake may take Metamucil or Benefiber as directed, may take gisc-myz-gaiqpyr stool softener like Colace . Stay well- hydrated , ordered CBC. Orders: Orders Alanine Aminotransferase Today Z00.00 - Encounter for general adult medical examination without abnormal findings Complete Blood Count Auto Diff Today K59.00 - Constipation, unspecified, Z87.19 - Personal history of other diseases of the digestive system Aspartate Amino Transferase Today Z00.00 - Encounter for general adult medical examination without abnormal findings Basic Metabolic Panel Fasting Today Z00.00 - Encounter for general adult medical examination without abnormal findings Lipid Panel Today Z00.00 - Encounter for general adult medical examination without abnormal findings Review Flu Vaccine not done: patient reason (Patient declined) Coding Level of Care Code Est Pt Prev Care 18-39y(56856) Diagnoses Adult general medical exam Z00.00 Constipation, unspecified constipation type K59.00 Constipation type: unspecified constipation type Additional Codes LOPEZ-7 Assessment Billing - LOPEZ-7 Assessment Tool: LOPEZ-7 Assessment 20359 ([id number])
[2023-05-21 13:19] VITALS: BP 118/82; PULSE 58; O2SAT 99; BMI 32.8
== END 2023-05-21 13:55 | disposition home or self-care (01) ==
LOC: HO.HMGC 13:15
PROVIDERS: PCP Internal Medicine; Visit Provider Internal Medicine
DX: Z00.00 Encounter for general adult medical examination without abnormal findings (principal); K59.00 Constipation, unspecified
CPT/HCPCS: 99395

== ENCOUNTER 2023-05-28 22:32 | Emergency (ER) | payer OTHER, SELFPAY ==
--- NOTE | ~2023-05-28 | CT_ITS ---
EXAMINATION: CT HEAD WITHOUT CONTRAST CLINICAL INFORMATION: Headache. COMPARISON: 08/01/2015 TECHNIQUE: Multidetector volumetric imaging of the head was performed without intravenous contrast material. This CT examination was performed using dose optimization techniques as appropriate, variously including the following: *Automated exposure control *Adjustment of mA and/or kV according to patient size (this includes techniques or standardized protocols for targeted exams where dose is matched to indication/reason for exam; i.e. extremities or head) *Use of iterative reconstruction technique Dose: 795 mGy-cm FINDINGS: There is no evidence of acute intracranial hemorrhage or territorial infarction. No abnormal mass-effect or midline shift is seen. Ortiz to white matter differentiation is well preserved. No extra axial fluid collections. The ventricles are normal in size and configuration. There is no abnormal attenuation within the brain parenchyma. The soft tissues and osseous structures are normal. The sinuses and mastoid air cells are clear. CT/CT head/brain wo IV con IMPRESSION: No acute intracranial pathology.
[2023-05-28 22:42] VITALS: BP 135/82; PULSE 86; RESP 22; TEMP 36.1; O2SAT 100; BMI 32.8
[2023-05-28 22:55] VITALS: BP 119/72; PULSE 84; RESP 16; O2SAT 100
--- NOTE | 2023-05-28 23:05 | PC.NURSE ---
pt to CT at this time.
--- NOTE | 2023-05-28 23:59 | ED.GENADULT ---
HPI - General Adult General Chief complaint: Head Injury Stated complaint: hit with basketball/disorientated Time Seen by Provider: 05/28/23 22:54 Source: patient, family, RN notes reviewed and old records reviewed Mode of arrival: ambulatory Limitations: no limitations History of Present Illness HPI narrative: 27-year-old male presents for evaluation of a headache after being struck in the head playing basketball. Patient reports that while playing basketball around 7:30 p.m, you was ?hit in the head by another player's arm. He is unsure exactly where on his head that he was struck. He did not fall to the ground there was no loss of consciousness He reports having headache, dizziness, lightheadedness with nausea ever since. Per the patient's parents, he has ?not been making sense. ? She patient reports a history of migraine headaches that started approximately 1 year ago intermittently Related Data Previous Rx's Medication Instructions Recorded lcheeclzet-glhbxdlqizpuz-hsksonxr 1 cap PO Q4-6H PRN headache #14 05/29/23 50 mg-300 mg-40 mg capsule caps (Fioricet) Allergies Allergy/AdvReac Type Severity Reaction Status Date / Time No Known Allergies Allergy Verified 05/28/23 22:42 [No Known Allergies*] Review of Systems Constitutional: Constitutional: Denies chills, Denies fever(s), Denies frequent falls and Reports headache(s) Eyes: Eyes: Denies blurry vision, Denies exophthalmos and Reports change in vision ENT: Reports headache(s) and Denies neck pain Cardiovascular: Cardiovascular: Denies chest pain and Denies dyspnea Respiratory: Respiratory: Denies cough, Denies pain with cough and Denies dyspnea Gastrointestinal: Gastrointestinal: Denies abdominal pain, Denies nausea and Denies vomiting Musculoskeletal: Musculoskeletal: Denies neck pain, Reports numbness and Reports tingling Integumentary/Breasts: Skin/Breast: Denies rash Neurologic: Denies frequent falls, Reports headache(s), Reports numbness and Reports tingling PMFSH Past Medical History Medical History (Updated 05/29/23 @ 01:10 by Alec Mon) History of rectal bleeding Heartburn Fracture of phalanx of right index finger No known health problems Surgical History No history of previous surgery Family History Family History Mother High blood pressure Obesity Father No problems noted. Social History Social History (Updated 05/21/23 @ 13:37 by Alissa Olmos MD) Housing: House Alcohol intake: current Alcohol intake frequency: holidays/special occasions only Patient Tobacco Use Status: Never used Tobacco e-Cigarette/Vaping Use: Never Used Second Hand Smoke Exposure: Yes Advance Directives: No Advance Directives Information Provided: Yes service: No Current occupational status: employed Cognitive needs: No Hearing needs: No Vision needs: No Physical Exam ED Vital Signs: Vital Signs - 24 hr 05/28/23 22:42 05/28/23 22:55 05/29/23 00:58 Temperature 96.9 F Pulse Rate 86 84 75 Respiratory Rate 22 H 16 16 Blood Pressure 135/82 119/72 102/57 L Pulse Oximetry 100 100 100 Oxygen Delivery Method Room Air Room Air Room Air BMI result Body Mass Index 32.8 Const General: healthy appearing, comfortable, no acute distress, alert and awake Nutritional Appearance: well nourished Orientation/consciousness: patient oriented x3 HENMT Head: Yes normocephalic and Yes atraumatic Eyes Eyelids: Yes eyelids normal Conjunctivae: conjunctivae normal Sclerae: sclerae normal Corneas: corneas normal Pupils: Equal, round and reactive pupils present EOM: EOMs intact bilaterally Neck Neck: Yes full ROM Resp Effort & Inspection: normal respiratory effort, able to speak in complete sentences and not labored Cardio Rate: regular rate Rhythm: regular rhythm GI Inspection: No distended Palpation (GI): Soft to palpation, not firm, nontender, no guarding and not rigid Auscultation: normoactive bowel sounds Skin General skin exam: no rashes or lesions noted and elasticity normal Neuro General: patient oriented x3 Cranial nerves: Yes CN's II-XII intact bilaterally, Yes Equal, round and reactive pupils present and Yes Bilaterally intact EOM present Cognition (Neuro): normal cognition Extrem Other: Moving all extremities well without any obvious deformities Course Reevaluation(s) Reevaluation #1: Patient re-evaluated after migraine cocktail he reports feeling better, he is still slightly nauseous but is tolerating p.o., he is stable for discharge. He was encouraged to follow-up his PCP given the new onset headaches over the last year. Time: 01:09 Medications Administered Discontinued Medications Generic Name Dose Route Start Last Admin Trade Name Reji PRN Reason Stop Dose Admin Diphenhydramine HCl 25 mg 05/28/23 23:44 05/29/23 00:06 Diphenhydramine Hcl 50 Mg/Ml Vial IVPUSH 05/28/23 23:45 25 mg ONCE ONE Administration Sodium Chloride 1,000 mls @ 999 mls/hr 05/28/23 23:45 05/29/23 00:07 Ns IV 05/29/23 00:45 999 mls/hr .Q1H1M ZACH Administration Ketorolac Tromethamine 30 mg 05/28/23 23:44 05/29/23 00:06 Ketorolac Tromethamine 30 Mg/Ml Vial IVPUSH 05/28/23 23:45 30 mg ONCE ONE Administration Metoclopramide HCl 10 mg 05/28/23 23:44 05/29/23 00:06 Metoclopramide Hcl 10 Mg/2 Ml Vial IVPUSH 05/28/23 23:45 10 mg ONCE ONE Administration Medical Decision Making Medical Decision Making MDM Narrative: 27-year-old healthy male presents for evaluation of headache, numbness and tingling after being struck in the head. It appears to be a fairly mild mechanism of action as he was struck by another player's arm accidentally. His parents he reports that he is disoriented, but to my evaluation he is responding to all questions appropriately. Will obtain a CT scan of the brain. He has no C-spine tenderness. No objective signs of trauma to the head or neck. Will treat the patient's headache with fluids, Reglan, Toradol, Benadryl. Differential Diagnosis Differential Diagnoses: The differential diagnosis associated with the presentation includes Acute headache Concussion Minor head injury Intracranial hemorrhage less likely Independent Interpretation I performed an independent interpretation of an: CT Scan (No acute intracranial hemorrhage, mass effect or midline shift) Radiology Impression Discussion of test interpretation with radiology: I have reviewed the radiologist's reading. (No acute intracranial pathology) Discharge Plan Discharge Clinical Impression: Minor closed head injury, Headache Patient Disposition: Home, Self-Care Instructions: Acute Headache (ED) Additional Instructions: Your CT scan did not show any acute traumatic injuries. Your headache was a possibly related to a concussion versus a migraine or a combination of both. Use ibuprofen as needed for pain at home. You may use Fioricet for breakthrough headaches. This medication has Tylenol in it, so do not take additional Tylenol Follow-up with your primary doctor Prescriptions: New rxlyxpblht-afwdrxxpkcyfe-gpad [Fioricet] 50-300-40 mg capsule 1 cap PO Q4-6H PRN (Reason: headache) Qty: 14 0RF
[2023-05-29] MEDS: diphenhydrAMINE HCL 50 MG/ML VIAL 25 MG IVPUSH (00:06)
[2023-05-29] MEDS: Metoclopramide HCl 10 MG/2 ML VIAL IVPUSH (00:06)
[2023-05-29] MEDS: Ketorolac Tromethamine 30 MG/ML VIAL IVPUSH (00:06)
[2023-05-29] MEDS: 0.9 % Sodium Chloride 1,000 ML 999 ML IV (00:07)
[2023-05-29 00:58] VITALS: BP 102/57; PULSE 75; RESP 16; O2SAT 100
--- NOTE | 2023-05-29 02:08 | PC.NURSE ---
iv removed at discharge. pt family at bedside at time of discharge. pt reports feeling better . pt ambulatory at discharge. pt provided with discharge packet. pt verbalized understanding of discharge plan
== END 2023-05-29 02:11 | disposition home or self-care (01) ==
PROVIDERS: Emergency Provider Emergency Medicine
DX: S09.90XA Unspecified injury of head, initial encounter (principal); R51.9 Headache, unspecified; R11.2 Nausea with vomiting, unspecified; Y29.XXXA Contact with blunt object, undetermined intent, initial encounter; Y93.9 Activity, unspecified; Y92.9 Unspecified place or not applicable; Y99.9 Unspecified external cause status; Z79.899 Other long term (current) drug therapy
CPT/HCPCS: 70450; 96361; 96374; 96375; 99284; J1200; J1885; J2765